=== PATIENT | male | born 1985 | race Caucasian/White ===

== ENCOUNTER → 2021-05-19 12:38 | Outpatient (CLI) | payer OTHER, SELFPAY ==
--- NOTE | ~2021-05-19 | XR_ITS ---
EXAMINATION: XR hand RT min 3V EXAM DATE: 05/19/2021 12:50 INDICATION: F/U Fx Of Right 5th Metacarpal. TECHNIQUE: Right hand frontal, lateral and oblique projections obtained and reviewed. There is no pr ior study for comparison. FINDINGS: There is bowed appearance to the 5th metacarpal bone most consistent with midshaft and also metacarpal neck chronic fractures. No acute fracture line is identified. The soft tissue is unremark able. There are no bony erosions identified. IMPRESSION: Old right 5th metacarpal bone fracture(s). Reviewed, dictated and finalized at location B.
== END ==
PROVIDERS: Visit Provider Plastic Surgery
DX: S62.306A Unspecified fracture of fifth metacarpal bone, right hand, initial encounter for closed fracture (principal); Z87.81 Personal history of (healed) traumatic fracture
CPT/HCPCS: 73130